=== PATIENT | male | born 1985 | race African-American/Black ===

== ENCOUNTER 2024-11-12 12:54 | Emergency (ER) | payer OTHER, SELFPAY ==
[2024-11-12] MEDS ORDERED: Ketorolac Tromethamine 30 MG (1 mL) VIAL ONE (15:42)
[2024-11-12] MEDS ORDERED: Orphenadrine Citrate 100 MG ER.TAB ONE (15:43)
[2024-11-12] MEDS ORDERED: predniSONE 20 MG TAB ONE (15:43)
== END 2024-11-12 16:55 | disposition home or self-care (01) ==
LOC: ERS 12:54
DX: S13.4XXA Sprain of ligaments of cervical spine, initial encounter (principal); M54.50 Low back pain, unspecified; V89.2XXA Person injured in unspecified motor-vehicle accident, traffic, initial encounter
CPT/HCPCS: 70450; 72125; 72131; 96372; J1885; J7512